=== PATIENT | male | born 1980 | race Caucasian/White ===

== ENCOUNTER → 2020-09-12 | Outpatient (CLI) | payer OTHER ==
[~2020-09-12] MED LIST: ASPIRIN EC81 MG PO; ATORVASTATIN CA20 MG PO; FERROUS SULFAT325 M2 PO; LEVOFLOXACIN250 MG PO; LOPRESSOR 25 MG25 MG PO; PANTOPRAZOLE SO40 MG PO; ZYVOX 600 MG T600 MG PO
== END ==
LOC: MRI 08:43
DX: S93.431A Sprain of tibiofibular ligament of right ankle, initial encounter (principal); S93.432A Sprain of tibiofibular ligament of left ankle, initial encounter; M25.472 Effusion, left ankle
CPT/HCPCS: 73721